=== PATIENT | female | born 1985 | race Asian ===

== ENCOUNTER 2018-06-07 10:16 | Emergency (ER) | payer OTHER ==
[~2018-06-07] VITALS: Ht 160 cm; Wt 108.9 kg
[2018-06-07 10:21] VITALS: TEMP 98.8
[2018-06-07 11:32] LABS: PLATELET COUNT 328 K/uL (152-353); POTASSIUM 3.7 mmol/L (3.6-5.2)
[2018-06-07 11:55] VITALS: BP 154/93
== END 2018-06-07 12:00 | disposition home or self-care (01) ==
LOC: ED 10:16
DX: T14.8XXA Other injury of unspecified body region, initial encounter (principal); W57.XXXA Bitten or stung by nonvenomous insect and other nonvenomous arthropods, initial encounter
CPT/HCPCS: 36415; 80053; 85027; 99283

== ENCOUNTER 2018-06-08 11:46 | Emergency (ER) | payer OTHER ==
[~2018-06-08] VITALS: Ht 160 cm; Wt 108.9 kg
[2018-06-08 14:25] VITALS: BP 146/88; TEMP 97.7
== END 2018-06-08 14:25 | disposition home or self-care (01) ==
LOC: ED 11:46
DX: L25.9 Unspecified contact dermatitis, unspecified cause (principal); L08.9 Local infection of the skin and subcutaneous tissue, unspecified
CPT/HCPCS: 96372; 99282; J2930